=== PATIENT | male | born 1965 | race American Indian/Alaskan Native ===

== ENCOUNTER 2021-07-27 21:52 | Emergency (ER) | payer BC ==
[2021-07-27] MEDS ORDERED: Acetaminophen/HYDROcodone 325-10 MG Tab PO ONE (21:53)
[2021-07-27 23:05] VITALS: BP 125/93; PULSE 81
[2021-07-28 00:11] LABS: ANION GAP 8.3 mEq/L (7-13); CHLORIDE,CL 103 mmol/L (98-107); SODIUM,NA 135 mmol/L (136-145)
[2021-07-28 00:20] LABS: ESTIMATED GFR > 60
[2021-07-28] MEDS ORDERED: Iopamidol 612 MG/ML 100 ML Bottle IVPUSH ONE (00:38)
[2021-07-28] MEDS ORDERED: Levofloxacin/Dextrose 5%-Water 750 MG in Premix Bag 1 BAG IV ONE (02:05)
[2021-07-28] MEDS ORDERED: HYDROmorphone 0.5 MG/0.5 ML Syringe IVPUSH ONE (02:05)
[2021-07-28] MEDS ORDERED: Acetaminophen/HYDROcodone 325-10 MG Tab ONE (02:44)
== END 2021-07-28 03:44 | disposition home or self-care (01) ==
LOC: DL.ED 21:52
DX: N39.0 Urinary tract infection, site not specified (principal); F17.210 Nicotine dependence, cigarettes, uncomplicated
CPT/HCPCS: 36415; 74177; 80053; 81001; 83605; 85025; 87040; 87086; 87088; 87186; 96365; 96375; 99284; A9270; J1170; J1956; Q9967

== ENCOUNTER 2022-08-23 21:26 | Inpatient (IN) | payer BC, OTHER ==
[2022-08-23] MEDS ORDERED: Lactated Ringers 500 ML IV ONE (22:30)
[2022-08-23] MEDS: Sodium Chloride 0.9% 10 ML Syringe FLUSH PRN (22:30)
[2022-08-23 22:47] LABS: HEMATOCRIT 46.8 % (40.0-54.0); HEMOGLOBIN 16.8 g/dL (14.0-18.0); MEAN CORPUSCULAR HEMOGLOBIN 33.5 pg (27.0-34.0); MEAN CORPUSCULAR HGB CONC 35.9 g/dL (33.0-35.0); MEAN CORPUSCULAR VOLUME 93.4 fL (80-100); PLATELET COUNT,PLT 208 10^3/uL (150-450); RED BLOOD CELL COUNT 5.01 10^6/uL (4.6-6.2); WHITE BLOOD CELL COUNT,WBC 24.9 10^3/uL (5.0-10.0)
[2022-08-23 22:50] LABS: BASOPHILS PERCENT AUTO 0.1 % (0.0-1.0); LYMPHOCYTES PERCENT AUTO 4.2 % (20.5-50.1); MONOCYTES PERCENT AUTO 7.2 % (2-8); NEUTROPHILS PERCENT AUTO 88.5 % (42.2-75.2)
[2022-08-23 22:55] LABS: ALANINE AMINOTRANSFERASE,ALT 60 U/L (16-63); ALBUMIN 2.9 g/dL (3.4-5.0); ALKALINE PHOSPHATASE 50 U/L (46-116); ASPARTATE AMNIOTRANSFERASE,AST 25 U/L (15-37); BILIRUBIN TOTAL 1.7 mg/dL (0.2-1.0); BLOOD UREA NITROGEN,BUN 23 mg/dL (7-18); BUN/CREATININE RATIO 10.3 (No establ ref range); CARBON DIOXIDE,CO2 24 mmol/L (21-32); CHLORIDE,CL 98 mmol/L (98-107); CREATININE 2.24 mg/dL (0.70-1.30); EST CRCL DRUG DOSING (CG) 40.42 mL/min; GLUCOSE RANDOM 137 mg/dL (70-99); MAGNESIUM 1.1 mg/dL (1.8-2.4); PROTEIN TOTAL,TP 7.2 g/dL (6.4-8.2); SODIUM,NA 134 mmol/L (136-145)
[2022-08-23] MEDS ORDERED: Albuterol/Ipratropium 3.0-0.5 MG/3 ML Neb Soln INH ONE (22:58)
[2022-08-23] MEDS ORDERED: Albuterol/Ipratropium 3.0-0.5 MG/3 ML Neb Soln NEB ONE (22:58)
[2022-08-23] MEDS ORDERED: Albuterol/Ipratropium 3.0-0.5 MG/3 ML Neb Soln ONE (22:58)
[2022-08-23 23:06] LABS: A/G RATIO 0.67; C-REACTIVE PROTEIN > 36.0 mg/dL (0.0-0.9); ESTIMATED GFR 34 mL/min (>=60)
[2022-08-23 23:13] LABS: BAND PERCENT MAN 3 %; LYMPHOCYTES PERCENT MAN 8 % (20-50); MONOCYTES PERCENT MAN 6 % (2-8); SEG NEUTROPHILS PERCENT MAN 83 % (42-75)
[2022-08-23] MEDS ORDERED: Piperacillin/Tazobactam 3.375 GM in Sodium Chloride 0.9% 100 ML IV ONE (23:28)
[2022-08-23] MEDS ORDERED: Vancomycin 2 GM in Sodium Chloride 0.9% 500 ML IV ONE (23:28)
[2022-08-23] MEDS ORDERED: Lactated Ringers 1,000 ML IV ONE (23:30)
[2022-08-23] MEDS ORDERED: Magnesium Sulfate/Water 2 GM in Premix Bag 1 BAG IV ONE (23:36)
[2022-08-23 23:49] LABS: LACTIC ACID 2.5 mmol/L (0.4-2.0)
[2022-08-24] MEDS ORDERED: Vancomycin 2 GM in Sodium Chloride 0.9% 500 ML IV ONE ×2
[2022-08-24 00:07] LABS: APPEARANCE,URINE SLIGHTLY CLOUDY (CLEAR); BILIRUBIN,URINE SMALL (NEGATIVE); COLOR,URINE ORANGE (YELLOW); GLUCOSE,URINE NEGATIVE (NEGATIVE); KETONES,URINE TRACE (NEGATIVE); LEUKOCYTE ESTERASE,URINE NEGATIVE (NEGATIVE); NITRITE,URINE POSITIVE (NEGATIVE); OCCULT BLOOD,URINE LARGE (NEGATIVE); PROTEIN,URINE 100 (NEGATIVE); UROBILINOGEN,URINE 0.2 mg/dL (0.2-1.0)
[2022-08-24] MEDS ORDERED: Potassium Chloride 10 MEQ Tab.ER PO ONE (00:10)
[2022-08-24] MEDS ORDERED: Magnesium Sulfate/Water 2 GM in Premix Bag 1 BAG IV ONE (00:12)
[2022-08-24 00:16] LABS: BACTERIA,URINE MODERATE /HPF (0-FEW/HPF); EPITHELIAL CELLS,URINE FEW /HPF (NOT SEEN); MUCUS,URINE MODERATE /LPF (NOT SEEN); RBC,URINE >100 /HPF (0-5)
[2022-08-24 00:17] LABS: AMORPHOUS SEDIMENT,URINE MODERATE /HPF (NOT SEEN)
[2022-08-24] MEDS ORDERED: Ondansetron 4 MG Tab.DIS PO PRN (04:22)
[2022-08-24] MEDS: Acetaminophen 325 MG Tab PO PRN ×2 (05:47→16:41)
[2022-08-24] MEDS: Heparin Sodium 5,000 Units/ML Vial SUBCUT SCH ×3 (05:49→21:51)
[2022-08-24] MEDS: Sodium Chloride 0.9% 1,000 ML IV SCH ×2 (05:49→14:17)
[2022-08-24 08:37] LABS: LACTIC ACID 2.9 mmol/L (0.4-2.0)
[2022-08-24] MEDS ORDERED: Sodium Chloride 0.9% 1,000 ML IV ONE ×2 (08:38→15:47)
[2022-08-24] MEDS: Piperacillin/Tazobactam 4.5 GM in Sodium Chloride 0.9% 100 ML IV SCH ×3 (09:05→23:39)
[2022-08-24] MEDS: Nicotine 21 MG/24 Hr Patch TRDERM SCH (09:06)
[2022-08-24] MEDS: Ketorolac 30 MG/ML SDV IVPUSH PRN ×2 (09:25→16:42)
[2022-08-24 15:27] LABS: ANION GAP 13.1 mEq/L (7-13); CALCIUM 7.7 mg/dL (8.5-10.1); CREATININE 1.89 mg/dL (0.70-1.30); EST CRCL DRUG DOSING (CG) 46.48 mL/min; MAGNESIUM 2.1 mg/dL (1.8-2.4); POTASSIUM,K 3.1 mmol/L (3.5-5.1)
[2022-08-24] MEDS: Albuterol/Ipratropium 3.0-0.5 MG/3 ML Neb Soln NEB PRN (15:33)
[2022-08-24] MEDS: NS + KCl 20mEq/L 1,000 ML IV SCH (17:50)
[2022-08-25] MEDS: Acetaminophen 325 MG Tab PO PRN ×3 (00:28→16:28)
[2022-08-25] MEDS: Ketorolac 30 MG/ML SDV IVPUSH PRN ×3 (01:35→16:26)
[2022-08-25] MEDS: NS + KCl 20mEq/L 1,000 ML IV SCH (01:44)
[2022-08-25] MEDS: Heparin Sodium 5,000 Units/ML Vial SUBCUT SCH ×3 (05:50→21:25)
[2022-08-25 06:25] LABS: HEMATOCRIT 39.7 % (40.0-54.0); HEMOGLOBIN 13.9 g/dL (14.0-18.0); MEAN CORPUSCULAR HEMOGLOBIN 33.4 pg (27.0-34.0); MEAN CORPUSCULAR VOLUME 95.4 fL (80-100); PLATELET COUNT,PLT 207 10^3/uL (150-450); RED BLOOD CELL COUNT 4.16 10^6/uL (4.6-6.2); WHITE BLOOD CELL COUNT,WBC 19.6 10^3/uL (5.0-10.0)
[2022-08-25 06:36] LABS: ANION GAP 11.6 mEq/L (7-13); CALCIUM 7.6 mg/dL (8.5-10.1); CREATININE 1.42 mg/dL (0.70-1.30); EST CRCL DRUG DOSING (CG) 61.87 mL/min; MAGNESIUM 2.2 mg/dL (1.8-2.4); POTASSIUM,K 3.6 mmol/L (3.5-5.1)
[2022-08-25 07:04] LABS: BASOPHILS PERCENT AUTO 0.1 % (0.0-1.0); EOSINOPHILS PERCENT AUTO 0.3 % (1.0-3.0); LYMPHOCYTES PERCENT AUTO 5.2 % (20.5-50.1); NEUTROPHILS PERCENT AUTO 90.4 % (42.2-75.2)
[2022-08-25 07:05] LABS: LYMPHOCYTES PERCENT MAN 7 % (20-50); MONOCYTES PERCENT MAN 3 % (2-8); SEG NEUTROPHILS PERCENT MAN 90 % (42-75)
[2022-08-25] MEDS: Nicotine 21 MG/24 Hr Patch TRDERM SCH (08:22)
[2022-08-25] MEDS: Piperacillin/Tazobactam 4.5 GM in Sodium Chloride 0.9% 100 ML IV SCH ×2 (08:23→15:17)
[2022-08-25] MEDS: Sodium Chloride 0.9% 10 ML Syringe FLUSH PRN (08:25)
[2022-08-25] MEDS: Albuterol/Ipratropium 3.0-0.5 MG/3 ML Neb Soln NEB PRN (15:07)
[2022-08-25] MEDS: Fluticasone NASAL Spray 16 GM Bottle NASBOTH SCH ×2 (17:36→21:25)
[2022-08-25] MEDS: Zolpidem 5 MG Tab PO PRN (21:25)
[2022-08-26] MEDS: Piperacillin/Tazobactam 4.5 GM in Sodium Chloride 0.9% 100 ML IV SCH ×4 (00:03→17:00)
[2022-08-26] MEDS: Acetaminophen 325 MG Tab PO PRN ×2 (03:52→16:57)
[2022-08-26] MEDS: Ketorolac 30 MG/ML SDV IVPUSH PRN ×2 (03:52→17:33)
[2022-08-26] MEDS: Heparin Sodium 5,000 Units/ML Vial SUBCUT SCH ×3 (05:08→22:13)
[2022-08-26 06:24] LABS: HEMATOCRIT 40.9 % (40.0-54.0); HEMOGLOBIN 14.3 g/dL (14.0-18.0); MEAN CORPUSCULAR HEMOGLOBIN 32.9 pg (27.0-34.0); PLATELET COUNT,PLT 236 10^3/uL (150-450); RED BLOOD CELL COUNT 4.35 10^6/uL (4.6-6.2); WHITE BLOOD CELL COUNT,WBC 16.1 10^3/uL (5.0-10.0)
[2022-08-26 06:33] LABS: BASOPHILS PERCENT AUTO 0.1 % (0.0-1.0); EOSINOPHILS PERCENT AUTO 0.7 % (1.0-3.0); LYMPHOCYTES PERCENT AUTO 7.3 % (20.5-50.1); MONOCYTES PERCENT AUTO 4.9 % (2-8)
[2022-08-26 06:38] LABS: ANION GAP 9.4 mEq/L (7-13); CREATININE 1.27 mg/dL (0.70-1.30); EST CRCL DRUG DOSING (CG) 69.17 mL/min; POTASSIUM,K 3.4 mmol/L (3.5-5.1)
[2022-08-26 06:53] LABS: LYMPHOCYTES PERCENT MAN 9 % (20-50); MONOCYTES PERCENT MAN 3 % (2-8); SEG NEUTROPHILS PERCENT MAN 88 % (42-75)
[2022-08-26] MEDS ORDERED: Potassium Chloride 10 MEQ Tab.ER PO ONE (07:28)
[2022-08-26] MEDS: Nicotine 21 MG/24 Hr Patch TRDERM SCH (09:16)
[2022-08-26] MEDS: Fluticasone NASAL Spray 16 GM Bottle NASBOTH SCH ×2 (09:27→22:14)
[2022-08-26] MEDS: Saccharomyces Boulardii (Probiotic) 250 MG Cap PO SCH ×2 (11:29→22:13)
[2022-08-26] MEDS: Clindamycin in 0.9 % Sod Chlor 900 MG in Premix Bag 1 BAG IV SCH ×4 (11:29→17:42)
[2022-08-27] MEDS: Clindamycin in 0.9 % Sod Chlor 900 MG in Premix Bag 1 BAG IV SCH ×8 (00:27→21:30)
[2022-08-27] MEDS: Piperacillin/Tazobactam 4.5 GM in Sodium Chloride 0.9% 100 ML IV SCH ×3 (00:31→15:50)
[2022-08-27] MEDS: Acetaminophen 325 MG Tab PO PRN ×3 (05:46→20:30)
[2022-08-27] MEDS: Ketorolac 30 MG/ML SDV IVPUSH PRN ×2 (05:47→20:32)
[2022-08-27] MEDS: Heparin Sodium 5,000 Units/ML Vial SUBCUT SCH ×3 (05:52→21:28)
[2022-08-27 06:41] LABS: HEMATOCRIT 39.8 % (40.0-54.0); HEMOGLOBIN 14.1 g/dL (14.0-18.0); MEAN CORPUSCULAR HEMOGLOBIN 33.2 pg (27.0-34.0); MEAN CORPUSCULAR HGB CONC 35.4 g/dL (33.0-35.0); MEAN CORPUSCULAR VOLUME 93.6 fL (80-100); PLATELET COUNT,PLT 306 10^3/uL (150-450); RED BLOOD CELL COUNT 4.25 10^6/uL (4.6-6.2); WHITE BLOOD CELL COUNT,WBC 12.2 10^3/uL (5.0-10.0)
[2022-08-27 07:01] LABS: ANION GAP 11.2 mEq/L (7-13); CALCIUM 8.1 mg/dL (8.5-10.1); CREATININE 1.07 mg/dL (0.70-1.30); EST CRCL DRUG DOSING (CG) 82.1 mL/min; POTASSIUM,K 3.2 mmol/L (3.5-5.1)
[2022-08-27 07:08] LABS: MAGNESIUM 1.9 mg/dL (1.8-2.4); VANCOMYCIN RANDOM 15.5 ug/mL (No Normal Range)
[2022-08-27 07:18] LABS: C-REACTIVE PROTEIN 20.9 mg/dL (0.0-0.9)
[2022-08-27 07:22] LABS: LYMPHOCYTES PERCENT AUTO 77.5 % (20.5-50.1)
[2022-08-27 07:23] LABS: BASOPHILS PERCENT AUTO 0.2 % (0.0-1.0); EOSINOPHILS PERCENT AUTO 1.9 % (1.0-3.0); MONOCYTES PERCENT AUTO 9.2 % (2-8)
[2022-08-27 07:27] LABS: BAND PERCENT MAN 2 %; LYMPHOCYTES PERCENT MAN 15 % (20-50); MONOCYTES PERCENT MAN 9 % (2-8); NRBC MANUAL 1 /100WBC; SEG NEUTROPHILS PERCENT MAN 74 % (42-75)
[2022-08-27] MEDS: Fluticasone NASAL Spray 16 GM Bottle NASBOTH SCH ×2 (09:05→20:38)
[2022-08-27] MEDS: Nicotine 21 MG/24 Hr Patch TRDERM SCH (09:06)
[2022-08-27] MEDS: Saccharomyces Boulardii (Probiotic) 250 MG Cap PO SCH ×2 (09:06→20:29)
[2022-08-27] MEDS ORDERED: VANCOmycin 1.5 GM/300 ML 1.5 GM in Premix Bag 1 BAG IV SCH (10:00)
[2022-08-27] MEDS: VANCOmycin 1.5 GM/300 ML 1.5 GM in Premix Bag 1 BAG IV SCH (13:06)
[2022-08-27] MEDS: Losartan 50 MG Tab PO SCH (15:57)
[2022-08-27] MEDS: Sodium Chloride 0.9% 10 ML Syringe FLUSH PRN (20:34)
[2022-08-27] MEDS: Zolpidem 5 MG Tab PO PRN (21:26)
[2022-08-28] MEDS: Piperacillin/Tazobactam 4.5 GM in Sodium Chloride 0.9% 100 ML IV SCH ×2 (00:28→07:58)
[2022-08-28] MEDS: VANCOmycin 1.5 GM/300 ML 1.5 GM in Premix Bag 1 BAG IV SCH ×2 (01:07→12:00)
[2022-08-28] MEDS: Clindamycin in 0.9 % Sod Chlor 900 MG in Premix Bag 1 BAG IV SCH ×2 (05:16)
[2022-08-28] MEDS: Heparin Sodium 5,000 Units/ML Vial SUBCUT SCH (05:20)
[2022-08-28] MEDS: Acetaminophen 325 MG Tab PO PRN (05:32)
[2022-08-28] MEDS: Ketorolac 30 MG/ML SDV IVPUSH PRN (05:32)
[2022-08-28 06:17] LABS: HEMATOCRIT 41.9 % (40.0-54.0); HEMOGLOBIN 14.9 g/dL (14.0-18.0); MEAN CORPUSCULAR HEMOGLOBIN 33.3 pg (27.0-34.0); MEAN CORPUSCULAR HGB CONC 35.6 g/dL (33.0-35.0); MEAN CORPUSCULAR VOLUME 93.5 fL (80-100); PLATELET COUNT,PLT 360 10^3/uL (150-450); RED BLOOD CELL COUNT 4.48 10^6/uL (4.6-6.2); WHITE BLOOD CELL COUNT,WBC 14.3 10^3/uL (5.0-10.0)
[2022-08-28 06:40] LABS: ALBUMIN 2.3 g/dL (3.4-5.0); ANION GAP 11.1 mEq/L (7-13); BASOPHILS PERCENT AUTO 0.3 % (0.0-1.0); BILIRUBIN TOTAL 0.7 mg/dL (0.2-1.0); BUN/CREATININE RATIO 16.8 (No establ ref range); CALCIUM 8.3 mg/dL (8.5-10.1); CREATININE 1.07 mg/dL (0.70-1.30); EOSINOPHILS PERCENT AUTO 1.8 % (1.0-3.0); EST CRCL DRUG DOSING (CG) 82.1 mL/min; LYMPHOCYTES PERCENT AUTO 12.8 % (20.5-50.1); MAGNESIUM 1.6 mg/dL (1.8-2.4); MONOCYTES PERCENT AUTO 9.4 % (2-8); NEUTROPHILS PERCENT AUTO 75.7 % (42.2-75.2); POTASSIUM,K 3.1 mmol/L (3.5-5.1); PROTEIN TOTAL,TP 6.7 g/dL (6.4-8.2)
[2022-08-28 06:43] LABS: A/G RATIO 0.52
[2022-08-28 07:06] LABS: BAND PERCENT MAN 4 %; LYMPHOCYTES PERCENT MAN 19 % (20-50); MONOCYTES PERCENT MAN 8 % (2-8); SEG NEUTROPHILS PERCENT MAN 69 % (42-75)
[2022-08-28] MEDS: Sodium Chloride 0.9% 10 ML Syringe FLUSH PRN (07:58)
[2022-08-28] MEDS: Losartan 50 MG Tab PO SCH (08:04)
[2022-08-28] MEDS: Saccharomyces Boulardii (Probiotic) 250 MG Cap PO SCH (08:04)
[2022-08-28] MEDS: Nicotine 21 MG/24 Hr Patch TRDERM SCH (08:05)
[2022-08-28] MEDS: Fluticasone NASAL Spray 16 GM Bottle NASBOTH SCH (08:05)
[2022-08-28] MEDS ORDERED: Magnesium Oxide 400 MG Tab PO SCH (09:45)
[2022-08-28] MEDS ORDERED: Iopamidol 612 MG/ML 100 ML Bottle IVPUSH ONE (10:30)
[2022-08-28] MEDS: Potassium Chloride 10 MEQ in Premix Bag 1 BAG IV SCH ×2 (10:37→11:41)
[2022-08-28 11:57] VITALS: BP 133/82; PULSE 64
== END 2022-08-28 12:40 | DRG 871 ==
LOC: DL.ED 21:26 → DL.MS 08-24 04:22
PROVIDERS: ADMIT Emergency Medicine; ATTEND Emergency Medicine
DX: A41.9 Sepsis, unspecified organism (principal); G93.41 Metabolic encephalopathy; N17.9 Acute kidney failure, unspecified; L02.411 Cutaneous abscess of right axilla; E87.20 Acidosis, unspecified; R65.20 Severe sepsis without septic shock; F10.10 Alcohol abuse, uncomplicated; E87.6 Hypokalemia; E83.42 Hypomagnesemia; E66.01 Morbid (severe) obesity due to excess calories; K52.9 Noninfective gastroenteritis and colitis, unspecified; R31.9 Hematuria, unspecified; F17.210 Nicotine dependence, cigarettes, uncomplicated; D64.9 Anemia, unspecified; G47.00 Insomnia, unspecified; E78.00 Pure hypercholesterolemia, unspecified; J44.9 Chronic obstructive pulmonary disease, unspecified; G47.33 Obstructive sleep apnea (adult) (pediatric); Z79.899 Other long term (current) drug therapy
CPT/HCPCS: 36415; 71250; 71260; 76999; 80048; 80053; 80202; 81001; 82947; 83605; 83735; 84145; 85025; 86140; 86618; 87040; 87086; 93005; 94640; 96361; 96365; 96366; 96367; 96368; 99285; 99285-25; A9270-GY; J1644; J1885; J2543; J3370; J3475; J3480; J3490; J7030; J7040; J7050; J7120; J7620-GY; Q9967

== ENCOUNTER 2022-11-05 02:10 | Emergency (ER) | payer BC, OTHER ==
[2022-11-05 02:31] LABS: BASOPHILS PERCENT AUTO 0.2 % (0.0-1.0); EOSINOPHILS PERCENT AUTO 0.6 % (1.0-3.0); HEMATOCRIT 42.6 % (40.0-54.0); HEMOGLOBIN 15.1 g/dL (14.0-18.0); LYMPHOCYTES PERCENT AUTO 20.8 % (20.5-50.1); MEAN CORPUSCULAR HEMOGLOBIN 33.3 pg (27.0-34.0); MEAN CORPUSCULAR HGB CONC 35.4 g/dL (33.0-35.0); MEAN CORPUSCULAR VOLUME 93.8 fL (80-100); MONOCYTES PERCENT AUTO 7.6 % (2-8); NEUTROPHILS PERCENT AUTO 70.8 % (42.2-75.2); PLATELET COUNT,PLT 275 10^3/uL (150-450); RED BLOOD CELL COUNT 4.54 10^6/uL (4.6-6.2); WHITE BLOOD CELL COUNT,WBC 12.9 10^3/uL (5.0-10.0)
[2022-11-05] MEDS ORDERED: Lactated Ringers 1,000 ML IV ONE (02:40)
[2022-11-05] MEDS ORDERED: LORazepam 2 MG/ML SDV IVPUSH ONE (02:44)
[2022-11-05 02:46] LABS: A/G RATIO 0.9; ALBUMIN 3.5 g/dL (3.4-5.0); ANION GAP 10.6 mEq/L (7-13); BILIRUBIN TOTAL 0.9 mg/dL (0.2-1.0); BUN/CREATININE RATIO 14.6 (No establ ref range); CALCIUM 8.7 mg/dL (8.5-10.1); CREATININE 1.37 mg/dL (0.70-1.30); EST CRCL DRUG DOSING (CG) 66.08 mL/min; MAGNESIUM 1.8 mg/dL (1.8-2.4); POTASSIUM,K 3.6 mmol/L (3.5-5.1); PROTEIN TOTAL,TP 7.4 g/dL (6.4-8.2)
[2022-11-05 05:04] VITALS: BP 159/79; PULSE 76
== END 2022-11-05 05:26 | disposition home or self-care (01) ==
LOC: DL.ED 02:10
DX: E86.0 Dehydration (principal); R25.2 Cramp and spasm; E78.00 Pure hypercholesterolemia, unspecified; I10 Essential (primary) hypertension; J44.9 Chronic obstructive pulmonary disease, unspecified; E66.9 Obesity, unspecified; Z68.30 Body mass index [BMI] 30.0-30.9, adult; Z79.82 Long term (current) use of aspirin; Z79.899 Other long term (current) drug therapy
CPT/HCPCS: 36415; 80053; 80307; 83735; 85025; 96361; 96374; 99283; 99283-25; J2060; J7120

== ENCOUNTER 2022-11-05 05:29 | Day surgery (SDC) | payer BC, OTHER ==
[2022-11-05] MEDS ORDERED: fentaNYL 100 MCG/2 ML SDV IV ONE ×4 (05:30→06:47)
[2022-11-05] MEDS ORDERED: Midazolam 1 MG/ML 2 ML SDV IV ONE ×7 (05:30→06:39)
[2022-11-05] MEDS ORDERED: Dextrose 5%-0.45% NaCl 1,000 ML IV SCH (06:00)
[2022-11-05] MEDS ORDERED: fentaNYL 100 MCG/2 ML SDV ONE (06:14)
[2022-11-05] MEDS ORDERED: Midazolam 1 MG/ML 2 ML SDV ONE (06:14)
[2022-11-05 09:46] VITALS: BP 116/58; PULSE 74
== END 2022-11-05 09:10 | disposition home or self-care (01) ==
LOC: DL.ENDO 05:29
PROVIDERS: ATTEND Internal Medicine Gastroenterology
DX: Z12.11 Encounter for screening for malignant neoplasm of colon (principal); D12.4 Benign neoplasm of descending colon; K57.30 Diverticulosis of large intestine without perforation or abscess without bleeding; K64.8 Other hemorrhoids; E66.09 Other obesity due to excess calories; I10 Essential (primary) hypertension; E86.0 Dehydration; R25.2 Cramp and spasm; E78.00 Pure hypercholesterolemia, unspecified; J44.9 Chronic obstructive pulmonary disease, unspecified; Z79.899 Other long term (current) drug therapy; Z98.890 Other specified postprocedural states; Z68.38 Body mass index [BMI] 38.0-38.9, adult; Z79.82 Long term (current) use of aspirin
CPT/HCPCS: 36415; 80053; 80307; 83735; 85025; 96361; 96374; 99283; 99283-25; J2060; J2250; J3010; J7042; J7120

== ENCOUNTER 2023-03-11 06:57 | Emergency (ER) | payer BC, OTHER ==
[2023-03-11] MEDS ORDERED: Lactated Ringers 1,000 ML IV ONE ×2 (07:06→07:57)
[2023-03-11 07:23] LABS: BASOPHILS PERCENT AUTO 0.4 % (0.0-1.0); EOSINOPHILS PERCENT AUTO 1.5 % (1.0-3.0); HEMATOCRIT 46.9 % (40.0-54.0); HEMOGLOBIN 17.1 g/dL (14.0-18.0); LYMPHOCYTES PERCENT AUTO 25.9 % (20.5-50.1); MEAN CORPUSCULAR HEMOGLOBIN 33.5 pg (27.0-34.0); MEAN CORPUSCULAR HGB CONC 36.5 g/dL (33.0-35.0); MONOCYTES PERCENT AUTO 9.2 % (2-8); PLATELET COUNT,PLT 209 10^3/uL (150-450)
[2023-03-11 07:26] LABS: O2 DELIVERY DEVICE ROOM AIR
[2023-03-11 07:29] LABS: BASE EXCESS VENOUS 3.2 mmol/l ((-2)-(+3)); BICARBONATE,VENOUS 29 mmol/l (19-25); O2 SATURATION VENOUS 72.6 % (60-80); PCO2 VENOUS 51 mmHg (41-51); PH,VENOUS 7.38 (7.31-7.41); PO2 VENOUS 48 mmHg (35-42)
[2023-03-11 07:34] LABS: APPEARANCE,URINE CLEAR (CLEAR); BILIRUBIN,URINE NEGATIVE (NEGATIVE); COLOR,URINE YELLOW (YELLOW); GLUCOSE,URINE 500 (NEGATIVE); KETONES,URINE 15 (NEGATIVE); LEUKOCYTE ESTERASE,URINE NEGATIVE (NEGATIVE); NITRITE,URINE NEGATIVE (NEGATIVE); OCCULT BLOOD,URINE MODERATE (NEGATIVE); PH,URINE 6.5 (5.0-9.0); PROTEIN,URINE NEGATIVE (NEGATIVE); UROBILINOGEN,URINE 0.2 mg/dL (0.2-1.0)
[2023-03-11 07:39] LABS: A/G RATIO 0.9; ALANINE AMINOTRANSFERASE,ALT 158 U/L (16-63); ALBUMIN 3.6 g/dL (3.4-5.0); ALKALINE PHOSPHATASE 135 U/L (46-116); ANION GAP 17.9 mEq/L (7-13); ASPARTATE AMNIOTRANSFERASE,AST 57 U/L (15-37); BILIRUBIN TOTAL 0.8 mg/dL (0.2-1.0); BLOOD UREA NITROGEN,BUN 27 mg/dL (7-18); BUN/CREATININE RATIO 19.4 (No establ ref range); CALCIUM 9.2 mg/dL (8.5-10.1); CARBON DIOXIDE,CO2 25 mmol/L (21-32); CHLORIDE,CL 92 mmol/L (98-107); CREATININE 1.39 mg/dL (0.70-1.30); EST CRCL DRUG DOSING (CG) 64.36 mL/min; LIPASE 113 U/L (16-77); MAGNESIUM 2.2 mg/dL (1.8-2.4); POTASSIUM,K 3.9 mmol/L (3.5-5.1); PROTEIN TOTAL,TP 7.7 g/dL (6.4-8.2); SODIUM,NA 131 mmol/L (136-145)
[2023-03-11 07:42] LABS: ESTIMATED GFR 59 mL/min (>=60); GLUCOSE RANDOM 521 mg/dL (70-99)
[2023-03-11 07:46] LABS: AMORPHOUS SEDIMENT,URINE OCCASIONAL /HPF (NOT SEEN)
[2023-03-11 07:48] LABS: EPITHELIAL CELLS,URINE FEW /HPF (NOT SEEN)
[2023-03-11 07:54] LABS: BACTERIA,URINE FEW /HPF (0-FEW/HPF)
[2023-03-11 07:57] LABS: KETONES,BLOOD SMALL-20 mg/dL
[2023-03-11] MEDS ORDERED: Ondansetron 4 MG/2 ML SDV IVPUSH ONE (07:57)
[2023-03-11] MEDS ORDERED: Potassium Chloride 10 MEQ Tab.ER PO ONE (08:00)
[2023-03-11] MEDS ORDERED: Glucagon,Human Recombinant 1 MG Vial IM PRN (08:02)
[2023-03-11] MEDS ORDERED: Insulin Regular, Human 100 Units/ML 3 ML Vial IV ONE (08:02)
[2023-03-11] MEDS ORDERED: 50% Dextrose in Water 50 ML Syringe IVPUSH PRN (08:02)
[2023-03-11 09:35] LABS: ANION GAP 12.1 mEq/L (7-13); CREATININE 1.24 mg/dL (0.70-1.30); EST CRCL DRUG DOSING (CG) 72.14 mL/min; POTASSIUM,K 4.1 mmol/L (3.5-5.1)
[2023-03-11 09:50] VITALS: BP 126/90; PULSE 68
[2023-03-11] MEDS ORDERED: metFORMIN 500 MG Tab PO ONE (10:32)
== END 2023-03-11 11:05 | disposition home or self-care (01) ==
LOC: DL.ED 06:57
DX: E11.65 Type 2 diabetes mellitus with hyperglycemia (principal); I10 Essential (primary) hypertension; E66.9 Obesity, unspecified; F17.210 Nicotine dependence, cigarettes, uncomplicated; Z79.82 Long term (current) use of aspirin; Z79.899 Other long term (current) drug therapy; Z68.36 Body mass index [BMI] 36.0-36.9, adult
CPT/HCPCS: 36415; 80048; 80053; 81001; 82009; 82803; 82947; 83690; 83735; 85025; 96361; 96374; 99284; 99284-25; A9270-GY; J1815-GY; J2405; J7120

== ENCOUNTER 2024-08-28 08:48 | Emergency (ER) | payer BC, OTHER ==
[2024-08-28 09:14] LABS: BASOPHILS PERCENT AUTO 0.3 % (0.0-1.0); EOSINOPHILS PERCENT AUTO 1.5 % (1.0-3.0); LYMPHOCYTES PERCENT AUTO 21.3 % (20.5-50.1); MONOCYTES PERCENT AUTO 7.2 % (2-8); NEUTROPHILS PERCENT AUTO 69.7 % (42.2-75.2); PLATELET COUNT,PLT 261 10^3/uL (150-450); RED BLOOD CELL COUNT 5.18 10^6/uL (4.6-6.2); WHITE BLOOD CELL COUNT,WBC 11.0 10^3/uL (5.0-10.0)
[2024-08-28 09:16] LABS: APPEARANCE,URINE CLEAR (CLEAR); GLUCOSE,URINE NEGATIVE (NEGATIVE); OCCULT BLOOD,URINE LARGE (NEGATIVE)
[2024-08-28 09:29] LABS: EPITHELIAL CELLS,URINE OCCASIONAL /HPF (NOT SEEN)
[2024-08-28 09:36] LABS: A/G RATIO 0.9; ALANINE AMINOTRANSFERASE,ALT 46.0 U/L (16-63); ASPARTATE AMNIOTRANSFERASE,AST 23.0 U/L (15-37); BILIRUBIN TOTAL 0.8 mg/dL (0.2-1.0); BLOOD UREA NITROGEN,BUN 20.0 mg/dL (7-18); CARBON DIOXIDE,CO2 27.0 mmol/L (21-32); CHLORIDE,CL 105.0 mmol/L (98-107); CREATININE 1.2 mg/dL (0.70-1.30); EST CRCL DRUG DOSING (CG) 73.65 mL/min; GLUCOSE RANDOM 120.0 mg/dL (70-99); POTASSIUM,K 3.5 mmol/L (3.5-5.1); PROTEIN TOTAL,TP 7.4 g/dL (6.4-8.2); SODIUM,NA 139.0 mmol/L (136-145)
[2024-08-28 09:37] LABS: ESTIMATED GFR 70.0 mL/min (>=60)
[2024-08-28] MEDS: Ketorolac 30 MG/ML SDV IM ONE (09:55)
[2024-08-28 10:03] VITALS: BP 138/92; PULSE 67
== END 2024-08-28 10:00 | disposition home or self-care (01) ==
LOC: DL.ED 08:48
DX: M54.50 Low back pain, unspecified (principal); R31.9 Hematuria, unspecified; R01.1 Cardiac murmur, unspecified; I10 Essential (primary) hypertension; E66.9 Obesity, unspecified; J44.9 Chronic obstructive pulmonary disease, unspecified; Z79.82 Long term (current) use of aspirin; Z79.899 Other long term (current) drug therapy; Z68.35 Body mass index [BMI] 35.0-35.9, adult
CPT/HCPCS: 36415; 80053; 81001; 85025; 96372; 99283; 99284; J1885